=== PATIENT | female | born 2000 | race Caucasian/White ===

== ENCOUNTER 2022-12-27 08:34 | Emergency (ER) | payer OTHER ==
[~2022-12-27] VITALS: Ht 162.6 cm; Wt 100.0 kg
[2022-12-27] MEDS ORDERED: ZPAK PO (09:44)
[2022-12-27 09:48] VITALS: BP 131/86
== END 2022-12-27 09:56 | disposition home or self-care (01) | DRG 153 ==
LOC: ED 08:34
DX: J06.9 Acute upper respiratory infection, unspecified (principal); Z20.822 Contact with and (suspected) exposure to COVID-19

== ENCOUNTER 2023-01-02 09:30 | Emergency (ER) | payer OTHER ==
[~2023-01-02] VITALS: Ht 162.6 cm; Wt 90.7 kg
[~2023-01-02 09:30] MED LIST: ZPAK PO
[2023-01-02 10:15] LABS: BASO% 0.4 % (0-3); EOS% 1.2 % (0-8); HEMATOCRIT 47.3 % (37.0-47.0); HEMOGLOBIN 15.6 g/dl (12.0-16.0); IMMATURE GRANULOCYTES 0.1 % (0.0-5.0); LYMPH% 18.2 % (15-41); MEAN CELL VOLUME 86.3 fL CALC (80.0-100.0); MEAN CORPUSCULAR HGB 28.5 pG CALC (26.0-32.0); MONO% 5.9 % (2-13); NEUT# 10.13 thou/uL (2.00-7.15); NEUT% 74.2 % (42-76); RED BLOOD COUNT 5.48 mill/uL (4.20-5.60)
[2023-01-02 10:48] LABS: ALBUMIN 4.5 g/dL (3.2-5.0); ALKALINE PHOSPHATASE 68 u/l (38-126); ANION GAP 11 (6-22 (CALC)); BILIRUBIN, TOTAL 0.9 mg/dL (0.02-1.3); BUN 6 mg/dL (7-17); BUN/CREATININE RATIO 8 (12-20 (CALC)); CARBON DIOXIDE 26 mmol/l (22-30); CHLORIDE 105 mmol/l (95-108); CREATININE 0.7 mg/dL (0.5-1.0); GFR FOR AFR.AMER. > 60 ML/MIN (>=60 (CALC)); GFR OTHER RACES > 60 ML/MIN (>=60 (CALC)); POTASSIUM 4.3 mmol/l (3.5-5.1); SGOT/AST 34 u/l (14-36); SODIUM 138 mmol/l (137-146)
[2023-01-02] MEDS ORDERED: FLEXERIL5 M1 PO (12:13)
[2023-01-02] MEDS ORDERED: DOXYCYCLINE100 MG PO (12:13)
[2023-01-02 12:23] VITALS: BP 115/80
== END 2023-01-02 12:34 | disposition home or self-care (01) | DRG 153 ==
LOC: ED 09:30
PROVIDERS: Family Medicine
DX: J06.9 Acute upper respiratory infection, unspecified (principal)